=== PATIENT | male | born 1960 | race Caucasian/White ===

== ENCOUNTER → 2017-01-19 | Outpatient (REF) | payer BC | LOC: M LAB REF 17:31 | PROVIDERS: ATTEND Surgery | DX: D48.5 Neoplasm of uncertain behavior of skin (principal) ==

== ENCOUNTER → 2017-02-02 | Outpatient (REF) | payer BC | LOC: M LAB REF 16:32 | PROVIDERS: ATTEND Surgery | DX: L03.113 Cellulitis of right upper limb (principal) ==

== ENCOUNTER → 2017-02-24 | Outpatient (REF) | payer BC | LOC: M LAB REF 09:47 | PROVIDERS: ATTEND Physician Assistant | DX: L02.413 Cutaneous abscess of right upper limb (principal) ==

== ENCOUNTER → 2020-09-05 | Outpatient (CLI) | payer BC ==
[~2020-09-05] MED LIST: AMLO1TAB25 PO; ATEN50TA2 PO; LISI20TA20 PO; MELO15TA28 PO; METH-1164 PO
== END ==
LOC: M LABSMTC 09:38
PROVIDERS: ATTEND Anesthesiology
DX: Z20.828 Contact with and (suspected) exposure to other viral communicable diseases (principal)

== ENCOUNTER 2020-09-10 06:47 | Day surgery (SDC) | payer BC ==
[~2020-09-10] VITALS: Ht 177.8 cm; Wt 141.5 kg
[~2020-09-10 06:47] MED LIST changes: -METH-1164 PO; +METH1TAB40 PO; +NS 1,000 ML IV ONE
[2020-09-10] MEDS ORDERED: LIDOCAINE 2% 100MG/5ML SDV (FOR ANES.) As Ordered ONE (07:13)
[2020-09-10] MEDS ORDERED: propofoL 200 MG/20 ML VIAL As Ordered ONE ×2 (07:13→08:25)
--- NOTE | 2020-09-10 08:28 | ROOR ---
Patient Name: Júnior Ritter Procedure Date: 09/10/2020 8:06 AM Date of : 1960 Age: 59 Room: [facility] Gender: Male Note Status: Finalized Procedure: Colonoscopy Indications: Screening for colorectal malignant neoplasm Providers: Richard BROTHERS MD Referring MD: Ruben Merritt MD Requesting Provider: Medicines: Monitored Anesthesia Care Complications: No immediate complications. Procedure: Pre-Anesthesia Assessment: - The heart rate, respiratory rate, oxygen saturations, blood pressure, adequacy of pulmonary ventilation, and response to care were monitored throughout the procedure. The Colonoscope was introduced through the anus and advanced to the cecum, identified by appendiceal orifice and ileocecal valve. The colonoscopy was performed without difficulty. The patient tolerated the procedure well. The quality of the bowel preparation was good. Findings: The perianal and digital rectal examinations were normal. Internal hemorrhoids were found during retroflexion. The hemorrhoids were medium-sized. The entire examined colon appeared normal on direct and retroflexion views. Impression: - Internal hemorrhoids. - The entire examined colon is normal on direct and retroflexion views. - No specimens collected. Recommendation: - Repeat colonoscopy in 10 years for screening purposes. Procedure Code(s): --- Professional --- 10377, Colonoscopy, flexible; diagnostic, including collection of specimen(s) by brushing or washing, when performed (separate procedure) Diagnosis Code(s): --- Professional --- K64.8, Other hemorrhoids Z12.11, Encounter for screening for malignant neoplasm of colon CPT copyright 2019 [employer]. All rights reserved. The codes documented in this report are preliminary and upon rehab aide review may be revised to meet current compliance requirements. Richard Brothers MD Richard BROTHERS MD 09/10/2020 8:27:40 AM Electronically signed by Richard BROTHERS MD Number of Addenda: 0 Note Initiated On: 09/10/2020 8:06 AM Estimated Blood Loss: Estimated blood loss: none.
[2020-09-10 09:00] VITALS: BP 176/74
== END 2020-09-10 09:03 | disposition home or self-care (01) ==
LOC: M OPP 06:47
PROVIDERS: ATTEND Internal Medicine Gastroenterology
DX: Z12.11 Encounter for screening for malignant neoplasm of colon (principal); K64.8 Other hemorrhoids; I10 Essential (primary) hypertension; G47.30 Sleep apnea, unspecified; Z79.899 Other long term (current) drug therapy; Z82.49 Family history of ischemic heart disease and other diseases of the circulatory system

== ENCOUNTER → 2022-04-28 | Outpatient (REF) ==
[~2022-04-28] MED LIST changes: -LISI20TA20 PO; +LISI20TA37 PO; +METH-1164 PO; -METH1TAB40 PO; -NS 1,000 ML IV ONE
== END ==
LOC: M PLAIMG 11:50
PROVIDERS: ATTEND Internal Medicine
DX: M25.512 Pain in left shoulder (principal)

== ENCOUNTER → 2023-01-21 | Outpatient (CLI) | payer BC | LOC: M SOG 09:47 | PROVIDERS: ATTEND Physician Assistant | DX: M79.641 Pain in right hand (principal) ==

== ENCOUNTER → 2025-07-20 | Outpatient (CLI) | LOC: M SOG 12:54 | PROVIDERS: ATTEND Physician Assistant | DX: M79.641 Pain in right hand (principal); M79.645 Pain in left finger(s); M19.041 Primary osteoarthritis, right hand; M19.042 Primary osteoarthritis, left hand ==